=== PATIENT | female | born 1950 | race Caucasian/White ===

== ENCOUNTER 2017-10-05 08:40 | Emergency (ER) | payer MEDICAID ==
[~2017-10-05] VITALS: Ht 149.9 cm; Wt 58.2 kg
[2017-10-05 08:42] VITALS: BP 138/73
== END 2017-10-05 11:09 | disposition left against medical advice (07) ==
LOC: ED 08:50
DX: M79.672 Pain in left foot (principal); Z53.21 Procedure and treatment not carried out due to patient leaving prior to being seen by health care provider